=== PATIENT | female | born 1955 | race Caucasian/White ===

== ENCOUNTER 2020-11-09 07:52 | Outpatient (CLI) | payer MEDICARE, SELFPAY ==
--- NOTE | ~2020-11-09 | XR_ITS ---
XR chest 2V DATE: 11/09/2020 08:06 INDICATION: Cough TECHNIQUE: PA and lateral views COMPARISON: 07/04/2019 2 view chest FINDINGS: Status post sternotomy. Status post ventral abdominal wall repair. Cardiomegaly. Mild aortic calcification and unfolding. No hilar or mediastinal enlargement. There is patchy infiltrate or atelectasis of the lingula, mild pleural thickening along the left lowe r lateral chest wall. The right lung appears clear. No pleural effusion or pulmonary vascular congest ion or pneumothorax is evident. IMPRESSION: Status post sternotomy and anterior abdominal wall repair Cardiomegaly Lingular infiltrate and/or atelectasis Reviewed, dictated and finalized at location B. SHAW DRIVER
== END 2020-11-09 07:53 | disposition home or self-care (01) ==
PROVIDERS: PCP Family Medicine; Visit Provider Physician Assistant Medical
DX: R05 Cough (principal); Z98.890 Other specified postprocedural states; I51.7 Cardiomegaly; R91.8 Other nonspecific abnormal finding of lung field
CPT/HCPCS: 71046

== ENCOUNTER 2020-11-30 07:12 | Outpatient (CLI) | payer MEDICARE, SELFPAY ==
--- NOTE | ~2020-11-30 | XR_ITS ---
EXAMINATION: XR chest 2V DATE: 11/30/2020 07:34 INDICATION: Pneumonia, unspecified organism TECHNIQUE: PA and lateral views of the chest are obtained. COMPARISON: 11/09/2020 FINDINGS: There are persistent but decreased airspace opacities of the lingula. There is no pleural e ffusion or pneumothorax. Cardiomegaly is noted. There is moderate thoracic spondylosis. Median sterno mavis wires and mediastinal surgical clips are seen, likely from prior coronary artery bypass grafting . IMPRESSION: 1. Persistent but improved opacities of the lingula, consistent with resolving pneumonia. 2. Cardiomegaly. Reviewed, dictated and finalized at location A. GROWER
== END 2020-11-30 07:13 | disposition home or self-care (01) ==
PROVIDERS: PCP Family Medicine; Visit Provider Physician Assistant Medical
DX: J18.9 Pneumonia, unspecified organism (principal); I51.7 Cardiomegaly
CPT/HCPCS: 71046

== ENCOUNTER 2020-12-06 14:31 | Outpatient (CLI) | payer MEDICARE, SELFPAY ==
--- NOTE | 2020-12-06 14:45 | ECHO_ITS ---
Patient Info Name: Anita Dorado Age: 65 years : 1955 Gender: Female Ht: 61 in Wt: 220 lbs BSA: 2.13 m2 HR: 92 bpm BP: 189 / 111 mmHg Heart Rhythm: Sinus Rhythm Technical Quality: Fair Exam Date: 12/06/2020 3:20 PM Exam Location: [facility]monary Patient Status: Outpatient Admit Date: 12/06/2020 Staff Ordering Physician: Candace Roman PAC Strike Warfare/Missile Systems Officer: Arabella Deng RCS Attending Provider: Candace Roman Referring Physician: Jessie QUINTEROS; Exam Type: CA echo doppler color flow Study Info Indications - cardiomegaly Complete two-dimensional, color flow and Doppler transthoracic echocardiogram is performed. Summary 1. Complete two-dimensional, color flow and Doppler transthoracic echocardiogram is performed. 2. Technically difficult image quality. 3. Normal left ventricular size and contractility. 4. Mildly enlarged left atrium. 5. Trivial mitral regurgitation. Left Ventricle Left ventricular chamber dimension is normal. Left ventricular systolic function is normal, estimated at 50-55%. The left ventricular diastolic function is grade I diastolic dysfunction. Right Ventricle Right ventricular chamber dimension is normal. Left Atria Left atrial chamber dimension is mildly enlarged. Right Atria Right atrial chamber dimension is normal. Aortic Valve The aortic valve is normal. Pulmonic Valve The pulmonic valve is not well visualized. Mitral Valve The mitral valve has normal leaflets. There is trace mitral valve regurgitation. Tricuspid Valve The tricuspid valve leaflets are normal. Pericardium/Pleural The pericardium appears normal. Aorta The aortic root size at the sinus of Valsalva is normal. Left Ventricular Outflow Tract Name Value Normal LVOT 2D LVOT Diameter 2.1 cm LVOT Doppler LVOT Peak Gradient 5 mmHg LVOT Mean Gradient 3 mmHg LVOT VTI 22 cm LVOT VTI/AV VTI Ratio 0.9 LVOT Stroke Volume 76 ml LVOT CO 16.7 l/min LVOT CI 7.9 l/min/m2 Pulmonic Valve Name Value Normal PV Doppler PV Peak Gradient 4 mmHg Mitral Valve Name Value Normal MV Doppler MV Decel Red [place] 314 cm/s2 MV PHT 57 ms MV Area (PHT) 3.8 cm2 4.0-5.0 MV Diastolic Function MV E Peak Velo
== END 2020-12-06 14:32 | disposition home or self-care (01) ==
PROVIDERS: PCP Family Medicine; Visit Provider Physician Assistant Medical
DX: I51.7 Cardiomegaly (principal)
CPT/HCPCS: 93306

== ENCOUNTER → 2021-01-03 12:42 | Outpatient (CLI) | payer MEDICARE, SELFPAY ==
--- NOTE | ~2021-01-03 | MM_ITS ---
EXAMINATION: MM screening [facility] BI w kevin HISTORY: Screening TECHNIQUE: Craniocaudal and mediolateral oblique 3-D tomosynthesis images were obtained and synthetic 2-D images were generated. CAD analysis was submitted and interpreted. COMPARISON: Comparison to multiple prior studies sequentially, with oldest reviewed study dated 04/2015. BREAST PARENCHYMAL COMPOSITION: There are scattered areas of fibroglandular density. FINDINGS: There is no evidence of suspicious mass, calcification, or architectural distortion to sugg est malignancy in either breast. There has been no suspicious interval change. IMPRESSION: 1. No mammographic evidence of malignancy. 2. Recommend routine screening mammography in one year. BI-RADS Category 1: Negative Reviewed, dictated and finalized at location A.
== END ==
PROVIDERS: PCP Family Medicine; Visit Provider Family Medicine
DX: Z12.31 Encounter for screening mammogram for malignant neoplasm of breast (principal)
CPT/HCPCS: 77063; 77067

== ENCOUNTER → 2022-04-03 07:20 | Outpatient (CLI) | payer MEDICARE, SELFPAY ==
--- NOTE | ~2022-04-03 | MM_ITS ---
EXAMINATION: [place] [facility] [place] HISTORY: Screening mammogram TECHNIQUE: Craniocaudal and mediolateral oblique 3-D tomosynthesis images were obtained and synthetic 2-D images were generated. CAD analysis was submitted and interpreted. COMPARISON: 01/03/2021, 08/31/2019, 03/23/2018 BREAST PARENCHYMAL COMPOSITION: There are scattered areas of fibroglandular density. FINDINGS: There is no suspicious mass, calcification, or architectural distortion to suggest malignan cy in either breast. There has been no suspicious interval change. IMPRESSION: 1. No mammographic evidence of malignancy. 2. Recommend routine screening mammography in one year. BI-RADS Category 1: Negative Reviewed, dictated and finalized at location A.
== END ==
PROVIDERS: PCP Family Medicine; Visit Provider Family Medicine
DX: Z12.31 Encounter for screening mammogram for malignant neoplasm of breast (principal)
CPT/HCPCS: 77063; 77067

== ENCOUNTER → 2023-06-11 07:22 | Outpatient (CLI) | payer MEDICARE, SELFPAY ==
--- NOTE | ~2023-06-11 | MM_ITS ---
EXAMINATION: MM screening [facility] w kevin HISTORY: Screening TECHNIQUE: Craniocaudal and mediolateral oblique 3-D tomosynthesis images were obtained and synthetic 2-D images were generated. CAD analysis was submitted and interpreted. COMPARISON: Comparison to multiple prior studies sequentially, with oldest reviewed study dated . BREAST PARENCHYMAL COMPOSITION: Breast composed of scattered areas of fibroglandular density FINDINGS: There is no evidence of suspicious mass, calcification, or architectural distortion to sugg est malignancy in either breast. There has been no suspicious interval change. IMPRESSION: 1. No mammographic evidence of malignancy. 2. Recommend routine screening mammography in one year. BI-RADS Category 1: Negative Reviewed, dictated and finalized at location A.
== END ==
PROVIDERS: PCP Family Medicine; Visit Provider Family Medicine
DX: Z12.31 Encounter for screening mammogram for malignant neoplasm of breast (principal)
CPT/HCPCS: 77063; 77067

== ENCOUNTER 2024-07-22 12:12 | Outpatient (CLI) | payer MEDICARE, SELFPAY ==
--- NOTE | ~2024-07-22 | MM_ITS ---
EXAMINATION: MM screening [facility] BI w kevin HISTORY: Screening mammogram TECHNIQUE: Craniocaudal and mediolateral oblique 3-D tomosynthesis images were obtained and synthetic 2-D images were generated. CAD analysis was submitted and interpreted. COMPARISON: 06/11/2023, 04/03/2022, 01/03/2021 BREAST PARENCHYMAL COMPOSITION:Not Dense. The breasts are almost entirely fatty FINDINGS: No suspicious mass, calcification, or architectural distortion are identified in either brandie ast to suggest malignancy. There has been no suspicious interval change. IMPRESSION: No mammographic evidence of malignancy. Recommend routine screening mammography in one year. BI-RADS Category 1: Negative Reviewed, dictated and finalized at location .
== END 2024-07-22 12:13 | disposition home or self-care (01) ==
LOC: MICIMG 12:13
PROVIDERS: PCP Family Medicine; Visit Provider Family Medicine
DX: Z12.31 Encounter for screening mammogram for malignant neoplasm of breast (principal)
CPT/HCPCS: 77063; 77067

== ENCOUNTER 2024-09-01 09:15 | Outpatient (CLI) | payer MEDICARE, SELFPAY ==
--- NOTE | ~2024-09-01 | XR_ITS ---
Right Shoulder Technique: AP and scapular Y views were obtained. Clinical History: Pain Findings: No fracture or dislocation is seen. Osseous alignment is anatomic. The glenohumeral and acr omioclavicular joints demonstrate moderate degenerative change. Soft tissues are unremarkable. Impression: Moderate degenerative changes, as above. Reviewed, dictated and finalized at [facility]. BLAST WORKER Impression: Moderate degenerative changes, as above.
== END 2024-09-01 09:16 | disposition home or self-care (01) ==
LOC: MICIMG 09:16
PROVIDERS: PCP Physician Assistant Medical; Visit Provider Physician Assistant Medical
DX: M19.011 Primary osteoarthritis, right shoulder (principal)
CPT/HCPCS: 73030

== ENCOUNTER 2024-12-13 08:48 | Outpatient (CLI) | payer MEDICARE, SELFPAY ==
--- NOTE | ~2024-12-13 | MR_ITS ---
EXAMINATION: MR shoulder RT wo con DATE: 12/13/2024 09:29 INDICATION: Right shoulder pain TECHNIQUE: Magnetic resonance imaging (MRI) of the right shoulder was performed without intravenous c ontrast. Sequences included axial PD-weighted FS FSE, coronal oblique PD-weighted FS FSE, coronal obl ique T2-weighted FS FSE, sagittal PD-weighted FS FSE, and sagittal T1-weighted SE. COMPARISON: None. FINDINGS: Evaluation moderately limited by some degree of motion artifact on all sequences. Coracoacromial arch: The acromion undersurface is flat in morphology (type I). The coracoacromial ligament is normal. Mode rate acromioclavicular osteoarthritis. Rotator cuff: Mild supraspinatus and infraspinatus tendinopathy with small mild partial-thickness tear articular si ded tear extending 5 mm AP and involving one third of the tendon thickness on the middle facet footpl ate of the tendon. There is up to 7 mm medial retraction of the bursal side of the tendon. The infras pinatus tendon is normal. Mild subscapularis tendinopathy without discrete tear. No asymmetric rotato r cuff muscle atrophy. Biceps tendon, glenoid labrum and glenohumeral cartilage: Mild tendinopathy without tear of the intra-articular portion of the long head biceps tendon. Severe when humeral osteoarthritis with extensive full or near full-thickness cartilage loss along the gleno id and the superior to superomedial aspect of the humeral head. There is associated subarticular cyst like changes along the anteroinferior glenoid. Suggestion of some early remodeling of the articular c ortex with increase in the radius of curvature the articular cortex at the anterosuperior medial aspe ct of the humeral head. Diffuse degenerative tearing of the glenoid labrum. Fluid: Moderate-sized glenohumeral joint effusion. Synovitis and a low signal intensity likely loose osteoch ondral body at the axillary recess of the joint space. There is significant fluid distending both the long head biceps tendon sheath as well as the deep subscapular recess. There is also a ganglion cyst extending cephalad along the superolateral margin of the coracoid process. No abnormal increased fl uid in the subacromial/subdeltoid bursa to suggest mild bursitis. Bones: Alignment is normal. No fracture or pathologic marrow replacing process. IMPRESSION: 1. Severe glenohumeral osteoarthritis with early remodeling of the humeral head, diffuse degenerative tearing of the glenoid labrum and moderate size joint effusion. 2. Mild rotator cuff tendinopathy with small mild articular sided tear at the footplate of the infras pinatus tendon. 3. Mild tendinopathy without tear of the long head biceps tendon. 4. Moderate acromioclavicular osteoarthritis. 5. Evaluation moderately limited by some degree of motion artifact on all sequences. Reviewed, dictated and finalized at location B. IMPRESSION: 1. Severe glenohumeral osteoarthritis with early remodeling of the humeral head , diffuse degenerative tearing of the glenoid labrum and moderate size joint ef fusion. 2. Mild rotator cuff tendinopathy with small mild articular sided tear at the f ootplate of the infraspinatus tendon. 3. Mild tendinopathy without tear of the long head biceps tendon. 4. Moderate acromioclavicular osteoarthritis. 5. Evaluation moderately limited by some degree of motion artifact on all seque nces.
== END 2024-12-13 08:49 | disposition home or self-care (01) ==
LOC: GOSHIMG 08:48
PROVIDERS: PCP Physician Assistant Medical; Visit Provider Physician Assistant Medical
DX: M19.011 Primary osteoarthritis, right shoulder (principal)
CPT/HCPCS: 73221

== ENCOUNTER 2025-02-27 10:52 | Outpatient (CLI) | payer MEDICARE, SELFPAY ==
--- NOTE | 2025-02-27 11:12 | ECG_ITS ---
Test Date: 2025-02-27 11:59:52 Measurements Intervals Smiley Rate: 57 P: 14 WI: 153 QRS: 0 QRSD: 91 T: 45 QT: 429 QTc: 420 Interpretive Statements SINUS BRADYCARDIA LOW QRS VOLTAGE IN PRECORDIAL LEADS INCOMPLETE RIGHT BUNDLE BRANCH BLOCK DELAYED PRECORDIAL R/S TRANSITION CONSIDER INFERIOR INFARCT, AGE INDETERMINATE BORDERLINE ST ABNORMALITY- HIGH LATERAL LEADS BASELINE ARTIFACT- I, II, III, AVR, AVL, AVF ABNORMAL ECG No previous ECG available for comparison Electronically Signed On 02-27-2025 12:08:32 CDT by Gigi Blevins D.O.
[2025-02-27 11:34] LABS: Hematocrit 42.4 % (37.0-47.0); Hemoglobin 13.3 g/dL (12.0-15.0)
[2025-02-27 11:49] LABS: Albumin Level 4.3 g/dL (3.5-5.1); Estimated Glomerular Filt Rate > 60; Glucose 108 mg/dL (65-110)
--- OUTSIDE RECORDS SUMMARY | 2025-02-27 12:12 | XMS_ITS | Clinical Summary ---
Author Organization [facility] Virtual Care Address [address] [place] [phone] Phone Care Team Providers Care Train System Operator Name Role Phone Raf Cano MD Primary Care Provider + [phone] Allergies No known active allergies Medications fish oil-fat acid comb.8-hb137 (OMEGA 3-6-9) 1,200 mg (400 [id number]) capsule 0 2 Active aspirin (ASPIRIN LOW DOSE) 81 mg tablet take 1 tablet (81MG) by oral route every day 0 2 Active albuterol HFA (VENTOLIN HFA) 90 mcg/actuation inhaler inhale 2 puff by inhalation route every 4 - 6 hours as needed 0 Inhaler 0 4 Active montelukast (SINGULAIR) 10 mg tablet take 1 tablet by oral route every day in the evening 0 0 6 Active losartan (COZAAR) 100 mg tablet Take 1 tablet (100 mg total) by mouth daily 2 Active fluticasone-ume clidin-vilanter (Trelegy Ellipta) 100-62.5-25 mcg inhaler Inhale 1 puff daily Active atorvastatin (LIPITOR) 40 mg tabletIndicatio ns:Coronary artery disease involving cataw[place] coronary artery of cata[place]ba heart without angina pectoris Take 1 tablet by mouth once daily 90 tablet 3 4 Active Active Problems Problem Noted Date Diagnosed Date Coronary artery disease invo lving catawba coronary artery of cata[place] heart without angina pectoris 06/11/2017 S/P CABG (coronary artery bypass graft) 06/11/20 17 Morbid obesity with BMI of 40.0-44.9, adult 05/23 Medical History Medical History Date Comments Hypertension Hypertension Coronary artery disease Social History Tobacco Use Types Packs/Day Years Used Date Smoking Tobacco: Never Smokeless Tobacco: Never Tobacco Cessation:Counseling Given: Not Answered Alcohol Use Standard Drinks/Week Comments Yes 0 (1 standard drink = 0.6 oz pur e alcohol) Comments Unknown Sex and Gender Information Value Date Recorded Sex Assigned at Not on file 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 Gender Identity Not on file Sexual Orientation Not on file Obstetrics History Last Filed Vital Signs Vital Sign Reading Time Taken Comments Blood Pressure 130/80 06/21/2024 8:58 AM CDT Pulse 77 06/21/2024 8:58 AM CDT Temperature - - Respiratory Rate 16 06/11/2017 8:59 AM CDT Oxygen Saturation 98% 06/21/2024 8:58 AM CDT Inhaled Oxygen Concentration - - Weight 95.4 kg (210 lb 6.4 oz) 06/21/2024 8:58 A M CDT Height 154.9 cm (5' 1) 06/21/2024 8:58 AM CDT Body Mass Index 39.75 06/21/2024 8:58 AM CDT Plan of Treatment Health Maintenance Due Date Last Done Comments Breast Cancer Screening-Mammogram 1955 Colon Cancer Screening-Colonoscopy 1955 Depression Screening 1955 Fall Risk Assessment 1955 Hepatitis C Screening 1955 Osteoporosis Screening-Bone Density Scan 1955 Hepatitis B Screening 1973 Pneumococcal vaccine 65+ (2 of 2 - PCV) 12/11/2015 12/10/2014 Well Visit 65+ 2020 Influenza Vaccine (Season Ended) 2025 07/17/2019, 07/11/2018, 07/02/2017, Additional history exists DTaP/Tdap/Td Vaccine (3 - Td or Tdap) 07/17/2029 07/17/2019, 06/01/2015 Zoster Vaccine Completed 09/25/2019, 07/27/2019 Insurance [facility] MDCR HMO REF [facility] MEDICARE GOLD Care Teams Train System Operator Relationship Specialty Start Date End Date Raf Cano MD PCP - General 12/19/16
--- OUTSIDE RECORDS SUMMARY | 2025-02-27 12:12 | XMS_ITS | Referral Summary ---
Author Organization [facility] Virtual Care Address [address] [place] [phone] Phone Care Team Providers Care Fiber Optic Technician Name Role Phone Raf Cano MD Primary Care Provider + [phone] Allergies No known active allergies Medications fish oil-fat acid comb.8-hb137 (OMEGA 3-6-9) 1,200 mg (400 [id number]) capsule 0 2 Active aspirin (ASPIRIN LOW [...] 40 mg tabletIndicatio ns:Coronary artery disease involving tlingit & haida coronary artery of tlingit & haida heart without angina pectoris Take 1 tablet by mouth once daily 90 tablet 3 4 Active Active Problems Problem Noted Date Diagnosed Date Coronary artery disease invo lving tlingit & haida coronary artery of tlingit & haida heart without angina pectoris 06/11/2017 S/P CABG (coronary artery bypass graft) 06/11/20 17 Morbid obesity with BMI of 40.0-44.9, adult 05/23 Social History Tobacco Use Types Packs/Day Years Used Date Smoking Tobacco: Never Smokeless Tobacco: Never Tobacco Cessation:Counseling Given: Not Answered Alcohol Use Standard Drinks/Week Comments Yes 0 (1 standard drink = 0.6 oz pur e alcohol) Comments Unknown Sex and Gender Information Value Date Recorded Sex Assigned at Not on file 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
[2025-02-27 12:18] LABS: Hemoglobin A1C 6.1 % (<5.7)
== END 2025-02-27 10:53 | disposition home or self-care (01) ==
PROVIDERS: PCP Physician Assistant Medical; Visit Provider Orthopaedic Surgery
DX: I10 Essential (primary) hypertension (principal); E78.2 Mixed hyperlipidemia; E11.9 Type 2 diabetes mellitus without complications; R79.89 Other specified abnormal findings of blood chemistry; D72.9 Disorder of white blood cells, unspecified
CPT/HCPCS: 36415; 82040; 82565; 82947; 83036; 85014; 85018; 93005

== ENCOUNTER 2025-03-09 09:34 | Outpatient (CLI) | payer MEDICARE, SELFPAY ==
--- NOTE | ~2025-03-09 | CT_ITS ---
EXAMINATION: CT_STKSHORTWO_CT DATE: 03/09/2025 10:03 INDICATION: Right shoulder osteoarthritis for preoperative planning. TECHNIQUE: High resolution computed tomography (CT) of the right shoulder was performed without intra venous contrast. Additional sagittal and coronal reconstructions were performed. Automated exposure c ontrol and iterative reconstruction technique were employed. The dose-length product was 415.54 mGy-c m. COMPARISON: Right shoulder radiographs dated 03/09/2025 FINDINGS: Bone alignment is normal. No fracture. Severe osteoarthritis with subarticular cystlike changes at felicia th the right glenohumeral and acromioclavicular joints. Moderate size marginal osteophytes about the humeral head and glenoid. Small right glenohumeral joint effusion with couple loose osteochondral bod ies at the axillary recess and additional moderate amount of fluid extending into the deep subscapula r recess. No asymmetric muscular atrophy of the right rotator cuff or remaining shoulder girdle. Mild discoid atelectasis at the posterior sulcus of the right lower lobe. No pathologically enlarged righ t axillary or hilar lymphadenopathy. IMPRESSION: 1. Severe right glenohumeral and acromioclavicular osteoarthritis. Reviewed, dictated and finalized at location B.
--- OUTSIDE RECORDS SUMMARY | 2025-03-09 10:02 | XMS_ITS | Referral Summary ---
Author Organization [facility] Virtual Care Address [address] [place] [phone] Phone Care Team Providers Care Patient'S Librarian Name Role Phone Raf Cano MD Primary Care Provider + [phone] Allergies No known active allergies Medications fish oil-fat acid comb.8-hb137 (OMEGA 3-6-9) 1,200 mg (400 [id number]) capsule 0 2 Active aspirin (ASPIRIN LOW [...] 40 mg tabletIndicatio ns:Coronary artery disease involving ely shoshone coronary artery of ely shoshone heart without angina pectoris Take 1 tablet by mouth once daily 90 tablet 3 4 Active Active Problems Problem Noted Date Diagnosed Date Coronary artery disease invo lving ely shoshone coronary artery of ely shoshone heart without angina pectoris 06/11/2017 S/P CABG [...] on file 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
--- OUTSIDE RECORDS SUMMARY | 2025-03-09 10:02 | XMS_ITS | Clinical Summary ---
Author Organization [facility] Virtual Care Address [address] [place] [phone] Phone Care Team Providers Care Medical Donation Professional Name Role Phone Raf Cano MD Primary Care Provider + [phone] Allergies No known active allergies Medications fish oil-fat acid comb.8-hb137 (OMEGA 3-6-9) 1,200 mg (400 [id number]) capsule 0 2 Active aspirin (ASPIRIN LOW [...] 40 mg tabletIndicatio ns:Coronary artery disease involving inupiat coronary artery of inupiat heart without angina pectoris Take 1 tablet by mouth once daily 90 tablet 3 4 Active Active Problems Problem Noted Date Diagnosed Date Coronary artery disease invo lving inupiat coronary artery of inupiat heart without angina pectoris 06/11/2017 S/P CABG [...] on file 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
== END 2025-03-09 09:35 | disposition home or self-care (01) ==
PROVIDERS: PCP Physician Assistant Medical; Visit Provider Orthopaedic Surgery
DX: M19.011 Primary osteoarthritis, right shoulder (principal)
CPT/HCPCS: 73200

== ENCOUNTER 2025-06-09 11:50 | Outpatient (CLI) | payer MEDICARE, SELFPAY ==
--- OUTSIDE RECORDS SUMMARY | 2025-06-09 11:59 | XMS_ITS | Encounter Summary ---
Author Organization [facility] Healthcare Address [address] [place] [address] Care Team Providers Care Redrawer Name Role Phone Raf Cano MD Primary Care Provider [phone] Encounter Details Date Type Department Care Team (Late st Contact Info) Description 07/17/2017 Orders Only [facility] Health Information Management [address] [place] [phone] Scanning, Provider Social History Tobacco Use Types Packs/Day Years Used Date Smoking Tobacco: Never Smokeless Tobacco: Never Alcohol Use Standard Drinks/Week Comments Yes 0 (1 standard drink = 0.6 oz pur e alcohol) Comments Unknown Sex and Gender Information Value Date Recorded Sex Assigned at Not on file 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 Gender Identity Not on file Sexual Orientation Not on file documented as of this encounter Plan of Treatment Not on file documented as of this encounter Procedures Procedure Name Priority Date/Time Associated Diagnosis Comments SCAN - RADIOLOGY/IMAGING 07/17/2017 documented in this encounter Results * SCAN - RADIOLOGY/IMAGING (07/17/2017) Anatomical Region Laterality Modality Other us Provider Scanning Final Result documented in this encounter Visit Diagnoses Not on filedocumented in this encounter Care Teams Redrawer Relationship Specialty Start Date End Date Raf Cano MD PCP - General 12/19/16 documented as of this encounter
--- OUTSIDE RECORDS SUMMARY | 2025-06-09 11:59 | XMS_ITS | Clinical Summary ---
Author Organization [facility] Virtual Care Address [address] [place] [phone] Phone Care Team Providers Care Photographic Process Worker Name Role Phone Raf Cano MD Primary Care Provider + [phone] Allergies No known active allergies Medications fish oil-fat acid comb.8-hb137 (OMEGA 3-6-9) 1,200 mg (400 [id number]) capsule 0 2 Active aspirin (ASPIRIN LOW [...] 40 mg tabletIndicatio ns: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 Take 1 tablet by mouth once daily 90 tablet 3 4 Active Active Problems Problem Noted Date Diagnosed Date Coronary artery disease invo lving iroquois coronary artery of iroquois heart without angina pectoris 06/11/2017 S/P CABG [...] on file 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
--- OUTSIDE RECORDS SUMMARY | 2025-06-09 11:59 | XMS_ITS | Encounter Summary ---
Author Organization [facility] Healthcare Address [address] [place] [address] Care Team Providers Care Legislative Aide Name Role Phone Raf Cano MD Primary Care Provider Encounter Details Date Type Department Care Team (Late st Contact Info) Description 10/20/2017 Orders Only [facility] [place] Health Information Management [address] [place] [id number] Scanning, Provider Social History Tobacco Use Types Packs/Day Years Used Date Smoking Tobacco: Never Smokeless Tobacco: Never Alcohol Use Standard Drinks/Week Comments Yes 0 (1 standard drink = 0.6 oz pur e alcohol) Comments Unknown Sex and Gender Information Value Date Recorded Sex Assigned at Not on file 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 Gender Identity Not on file Sexual Orientation Not on file documented as of this encounter Plan of Treatment Not on file documented as of this encounter Procedures Procedure Name Priority Date/Time Associated Diagnosis Comments SCAN - RADIOLOGY/IMAGING 10/20/2017 documented in this encounter Results * SCAN - RADIOLOGY/IMAGING (10/20/2017) Anatomical Region Laterality Modality Other us Provider Scanning Final Result documented in this encounter Visit Diagnoses Not on filedocumented in this encounter Care Teams Legislative Aide Relationship Specialty Start Date End Date Raf Cano MD PCP - General 12/19/16 documented as of this encounter
--- OUTSIDE RECORDS SUMMARY | 2025-06-09 11:59 | XMS_ITS | Clinical Summary ---
Author Organization [facility] Address [facility] [place] [address] Care Team Providers Care Circus Artist Name Role Phone Raf Cano MD Primary Care Provider [phone] Allergies Active Allergy Reactions Criticality Noted Date Comments Cefuroxime Itching 01/28/2023 Medications losartan (COZAAR) 100 MG tablet Take 1 tablet (100 mg total) by mouth daily. Active atorvastatin (LIPITOR) 20 MG tablet Take 1 tablet (20 mg total) by mouth nightly at bedtime. Active montelukast (SINGULAIR) 10 MG tablet Take 1 tablet (10 mg total) by mouth nightly at bedtime. Active Fluticasone-Umec lidin-Vilant (TRELEGY ELLIPTA) 100-62.5-25 MCG/ACT AEROSOL POWDER, BREATH ACTIVATED Inhale 100 mg into the lungs. Active aspirin EC (ECOTRIN) 81 MG tablet Take 1 tablet (81 mg total) by mouth daily. Active vitamin C (ASCORBIC ACID) 500 MG tablet Take 1 tablet (500 mg total) by mouth daily. Active fish oil (OMEGA-3 FATTY ACID) 1000 MG Cap capsule Take 2,400 mg by mouth daily. 2 tabs daily Active Nutritional Supplements (JUICE PLUS FIBRE) Liquid Take 6 capsules by mouth daily. Active albuterol sulfate HFA 108 (90 Base) MCG/ACT inhaler INHALE 1 PUFF BY MOUTH EVERY 4 HOURS NEEDED FOR SHORTNESS OF BREATH OR WHEEZING 3 Active ketoconazole (NIZORAL) 2 % shampoo SHAMPOO TWICE WEEKLY (USE ON FACE AND SCALP), LEAVE ON FOR 5 MINUTES BEFORE RINISING 08/17/202 2 Active Active Problems No known active problems Family History Medical History Relation Comments Cancer Father Colon Cancer Maternal Grandmother None Mother Relation Status Comments Father Maternal Grandmother Mother Social History Tobacco Use Types Packs/Day Years Used Date Smoking Tobacco: Never Smokeless Tobacco: Never Alcohol Use Standard Drinks/Week Comments Yes 0 (1 standard drink = 0.6 oz pur e alcohol) holidays Comments Unknown Sex and Gender Information Value Date Recorded Sex Assigned at Not on file Legal Sex Female 10:39 AM CDT Gender Identity Not on file Sexual Orientation Not on file Last Filed Vital Signs Vital Sign Reading Time Taken Comments Blood Pressure 121/86 02/04/2023 11:02 AM CDT Pulse 68 02/04/2023 11:02 AM CDT Temperature 36.6 C (97.8 F) 02/04/2023 10:50 AM CDT Respiratory Rate 15 02/04/2023 11:02 AM CDT Oxygen Saturation 97% 02/04/2023 11:02 AM CDT Inhaled Oxygen Concentration - - Weight 113.4 kg (250 lb) 01/28/2023 2:11 PM CDT Height 154.9 cm (5' 1) 01/28/2023 2:11 PM CDT Body Mass Index 47.24 01/28/2023 2:11 PM CDT Plan of Treatment Health Maintenance Due Date Last Done Comments Hepatitis C 1973 Mammogram Screening 1995 RSV Immunization or 60+ Years (1 - Risk 60-74 years 1-dose series) 2015 Annual Medicare Wellness Visit 2020 Dexa Scan (General) 2020 Pneumococcal Vaccine: 50+ Years (2 of 2 - PCV) 06/04/2022 06/04/2021, 12/10/2014 COVID-19 Vaccine (3 - 2024-2 6 season) 2025 02/10/2021, 01/20/2021 DTaP, Tdap and Td Vaccines ( 3 - Td or Tdap) 07/17/2029 07/17/2019, 06/01/2015 Colorectal Cancer Screening Colonoscopy (10 Years) 02/04/2033 02/04/2023, 02/04/2023 Zoster Vaccines Completed 09/25/2019, 07/27/2019 Meningococcal B Vaccine Aged Out No l onger eligible based on patient's age to complete this topic Meningococcal Vaccine Aged Out No rebecca kya eligible based on patient's age to complete this topic RSV Immunizations Under 20 Months Aged Out No longer eligible b ased on patient's age to complete this topic Procedures Procedure Name Priority Date/Time Associated Diagnosis Comments COLONOSCOPY Routine 02/04/2023 9:28 AM CDT from Last 3 Months or Most Recently Relevant to Health [place] [address] Care Teams Circus Artist Relationship Specialty Start Date End Date Raf Cano MD [address] [address] PCP - General FAMILY PRACTICE 02/04/23
[2025-06-09 13:31] LABS: Hematocrit 41.4 % (37.0-47.0); Hemoglobin 12.8 g/dL (12.0-15.0); Immature Granulocyte Percent A 0.2 % (0-0.5); Lymphocytes Absolute Auto 2.28 K/mm3 (0.9-3.2); Mean Corpuscular HGB Conc 30.9 g/dl (32-36); Mean Corpuscular Hemoglobin 28.5 pg (26-34); Mean Corpuscular Volume 92.2 fl (80-100); Nucleated Red Blood Cells Absolute Auto 0.000 K/mm3 (0.0-0.012); Nucleated Red Blood Cells Perc 0.0 % (0.0-0.2); Platelet Count Result 293 k/mm3 (150-375); Red Blood Count 4.49 M/mm3 (4.2-5.4); White Blood Count 8.2 K/mm3 (4.5-10.0)
[2025-06-09 14:39] LABS: MRSA (PCR) NOT DETECTED (NOT DETECTE)
== END 2025-06-09 11:51 | disposition home or self-care (01) ==
LOC: ANHSURGERY 11:57
PROVIDERS: PCP Family Medicine; Visit Provider Orthopaedic Surgery
DX: M75.111 Incomplete rotator cuff tear or rupture of right shoulder, not specified as traumatic (principal)
CPT/HCPCS: 36415; 85025; 87641

== ENCOUNTER 2025-07-06 00:40 | Day surgery (SDC) | payer MEDICARE, SELFPAY ==
[2025-06-09 12:01] VITALS: BMI 35.2
--- NOTE | 2025-06-09 12:01 | PC.NURSE ---
[facility] has started construction of its new state of the art ER which will open Spring 2026. With this, we anticipate parking may be a challenge for some our surgical patients and families. Parking spaces are limited but are available for all Surgical, obstetrics, and ER patients sharing this lot. If you arrive and find you are having a hard time finding a parking space, please note that we understand the challenges, please drive around the hospital and park near Hospital Entrance 1. When you enter this entrance, you can ask a volunteer to direct or take you back to the surgical waiting area to check in. We appreciate everyone?s understanding of these expected challenges while we build for your future. Report to the Outpatient Waiting Room, entrance under the green pavilion located off [address], at time _6 am on date __07/06/25 . Planned Procedure Time: __7:30 am .? Time changes happen often and if your time is changed the preop area will call you the afternoon before. - You and your visitor will be asked to self-screen and do not enter if you have any COVID symptoms. Please call surgeon if you need to reschedule. - A mask is optional within the hospital at this time. Patients may have clear liquids (water, carbonated beverages, clear teas, apple juice) until 3 hours prior to surgery ( 4:30 AM)with a maximum of 20 ounces. - No food from midnight until time of surgery and no smoking, or chewing tobacco (or any form of nicotine). No chewing gum, candy or mints. - Take only the following medications with a SIP of water on the morning of surgery: __INHALER DO NOT STOP ANY OF YOUR OTHER PRESCRIPTION MEDICATIONS PRIOR TO SURGERY EXCEPT THE FOLLOWING Hold all vitamins and supplements for 3 days per anesthesiologist.LAST DOSE 07/02/25 Medications to discontinue per physician __HOLD ASPIRIN AND MELOXICAM 7 DAYS PRE OP PER DR MORALES Date to take last dose__06/28/25 Please no make-up, nail burkinan, hairspray, perfume, deodorant, or body powder the day of surgery.? No jewelry (including any body piercings) or valuables the day of surgery, leave them at home.? Please take a shower or bath the night before, or the morning of, surgery with an antibacterial soap.? Wear comfortable, loose fitting clothing.? Children are encouraged to wear pajamas. - Jewelry must be removed prior to entering the operating room.? Rings and piercings that are not removed may be cut off. - The hospital will not accept responsibility for valuables.? - Please leave all valuables, including medications, at home the day of surgery. If you are going home after surgery, a licensed horse and wagon driver must drive you home.? - NO public transportation without another adult if you receive anesthesia. - We recommend that an adult stay with you for 24 hours following discharge. - We also recommend that you do not drive, make important decision, drink alcoholic beverages, or take any drugs that were not prescribed by your health care provider for at least 24 hours after your discharge time. For Pediatric surgeries, we recommend two adults accompany the child home. Follow any additional instructions given to you from your surgeon. VERBAL AND WRITTEN instructions given to PATIENT AND SPOUSE and asked if any additional questions and then verbalized understanding. Patient advised to call surgeon office or pre surgery nurse liaison [phone] if any additional questions.
[2025-06-09 12:57] VITALS: BP 137/78; PULSE 61; RESP 18; TEMP 36.9; O2SAT 97
[2025-07-06] VITALS (14 sets, daily range): BP systolic 131–172; BP diastolic 65–92; PULSE 55–76; RESP 12–18; TEMP 35.7–36.8; O2SAT 92–100
--- NOTE | ~2025-07-06 | XR_ITS ---
EXAMINATION: XR shoulder RT min 2V, 07/06/2025 9:55 CDT HISTORY: POST-OP RIGHT REVERSE TOTAL SHOULDER COMPARISON: No comparisons available. Findings: No acute fracture or malalignment. Arthroplasty intact Soft tissues unremarkable. Impression: No acute fracture or malalignment. Reviewed, dictated and finalized at location P. Impression: No acute fracture or malalignment.
--- OUTSIDE RECORDS SUMMARY | 2025-07-06 00:43 | XMS_ITS | Clinical Summary ---
Author Organization [facility] Address [facility] [place] [address] Care Team Providers Care Identity Management Developer Name Role Phone Raf Cano MD Primary Care Provider [phone] Allergies Active Allergy Reactions Criticality Noted Date [...] LEAVE ON FOR 5 MINUTES BEFORE RINISING 2 Active Active Problems No known active [...] 06/04/2022 06/04/2021, 12/10/2014 COVID-19 Vaccine (3 - season) 2025 02/10/2021, 01/20/2021 Influenza Adult (#1) 2025 07/17/2019, 07/11/2018, 07/02/2017, Additional history exists DTaP, Tdap and Td Vaccines (3 - Td or Tdap) 07/17/2029 07/17/2019, 06/01/2015 Colorectal Cancer Screening Colonoscopy (10 Years) 02/04/2033 02/04/2023, 02/04/2023 Zoster Vaccines Completed 09/25/2019, 07/27/2019 Hepatitis A Vaccines Aged Out No long er eligible based on patient's age to complete this topic Meningococcal B Vaccine Aged Out No l onger eligible based on patient's age to complete this topic Meningococcal Vaccine Aged Out No rebecca kya eligible based on patient's age to complete this topic RSV Immunizations Under 20 Months Aged Out No longer eligible based on patient's age to complete this topic Procedures Procedure Name Priority Date/Time Associated Diagnosis Comments COLONOSCOPY Routine 02/04/2023 9:28 AM CDT from Last 3 Months or Most Recently Relevant to Health Maintenance Insurance MEDICARE Care Teams Identity Management Developer Relationship Specialty Start Date End Date Raf Cano MD [address] [address] PCP - General FAMILY PRACTICE 02/04/23
--- OUTSIDE RECORDS SUMMARY | 2025-07-06 00:43 | XMS_ITS | Encounter Summary ---
Author Organization [facility] Healthcare Address [address] [place] [address] Care Team Providers Care Plate Take Out Worker Name Role Phone Raf Cano MD Primary Care Provider Encounter Details Date Type Department Care Team (Late st Contact Info) Description 09/07/2017 Orders Only [facility] Health Information Management [address] [place] [id number] Scanning, Provider Social History Tobacco Use Types Packs/Day Years Used Date Smoking Tobacco: Never Smokeless Tobacco: Never Alcohol Use Standard Drinks/Week Comments Yes 0 (1 standard drink = 0.6 oz pur e alcohol) Comments Unknown Sex and Gender Information Value Date Recorded Sex Assigned at Not on file 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 Gender Identity Not on file Sexual Orientation Not on file documented as of this encounter Plan of Treatment Not on file documented as of this encounter Procedures Procedure Name Priority Date/Time Associated Diagnosis Comments SCAN - RADIOLOGY/IMAGING 09/07/2017 documented in this encounter Results * SCAN - RADIOLOGY/IMAGING (09/07/2017) Anatomical Region Laterality Modality Other us Provider Scanning Final Result documented in this encounter Visit Diagnoses Not on filedocumented in this encounter Care Teams Plate Take Out Worker Relationship Specialty Start Date End Date Raf Cano MD PCP - General 12/19/16 documented as of this encounter
--- OUTSIDE RECORDS SUMMARY | 2025-07-06 00:43 | XMS_ITS | Encounter Summary ---
Author Organization [facility] Healthcare Address [address] [place] [address] Care Team Providers Care Research Chemist Name Role Phone Raf Cano MD Primary Care Provider Encounter Details Date Type Department Care Team (Late st Contact Info) Description 07/17/2017 Orders Only [facility] Health Information Management [address] [place] [id number] Scanning, Provider Social History Tobacco Use Types Packs/Day Years Used Date Smoking Tobacco: Never Smokeless Tobacco: Never Alcohol Use Standard Drinks/Week Comments Yes 0 (1 standard drink = 0.6 oz pur e alcohol) Comments Unknown Sex and Gender Information Value Date Recorded Sex Assigned at Not on file 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
--- OUTSIDE RECORDS SUMMARY | 2025-07-06 00:43 | XMS_ITS | Clinical Summary ---
Author Organization [facility] Virtual Care Address [address] [place] [phone] Phone Care Team Providers Care Manager Project Name Role Phone Raf Cano MD Primary Care Provider [phone] Allergies No known active allergies Medications fish oil-fat acid [id number] (OMEGA 3-6-9) 1,200 mg (400 [id number] ) capsule 0 05/06/20 12 Active aspirin (ASPIRIN LOW DOSE) 81 mg tablet take 1 tablet (81MG) by oral route every day 0 05/06/20 12 Active albuterol HFA (VENTOLIN HFA) 90 mcg/actuation inhaler inhale 2 puff by inhalation route every 4 - 6 hours as needed 0 Inhaler 0 03/16/20 14 Active montelukast (SINGULAIR) 10 mg tablet take 1 tablet by oral route every day in the evening 0 0 02/26/20 16 Active losartan (COZAAR) 100 mg tablet Take 1 tablet (100 mg total) by mouth daily 06/11/20 22 Active fluticasone-um eclidin-vilant er (Trelegy Ellipta) 100-62.5-25 mcg inhaler Inhale 1 puff daily Active atorvastatin (LIPITOR) 40 mg tabletIndicati ons: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 Take 1 tablet by mouth once daily 90 tablet 3 07/05/20 25 Active atorvastatin (LIPITOR) 40 mg tabletIndicati ons: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 GOLD Care Teams Manager Project Relationship Specialty Start Date End Date Raf Cano MD [facility] - General 12/19/16
--- OUTSIDE RECORDS SUMMARY | 2025-07-06 00:43 | XMS_ITS | Encounter Summary ---
Author Organization [facility] Healthcare Address [address] [place] [address] Care Team Providers Care Lot Boss Name Role Phone Raf Cano MD Primary Care Provider Encounter Details Date Type Department Care Team (Late st Contact Info) Description 10/20/2017 Orders Only [facility] [place] Health Information Management [address] [place] [id number] Scanning, Provider Social History Tobacco Use Types Packs/Day Years Used Date Smoking Tobacco: Never Smokeless Tobacco: Never Alcohol Use Standard Drinks/Week Comments Yes 0 (1 standard drink = 0.6 oz pur e alcohol) Comments Unknown Sex and Gender Information Value Date Recorded Sex Assigned at Not on file 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
[2025-07-06] MEDS: LACTATED RINGERS 1,000 ML 30 ML IV CONT ×2 (06:30→09:42)
[2025-07-06] MEDS: TRANEXAMIC ACID 1,000MG/ISO100 1,000 MG/100 ML BAG 200 MG IVPB (07:00)
--- NOTE | 2025-07-06 07:05 | WPDANESEPPF ---
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 Patient Data Age: 70 Gender: F Height: 1.55 m Weight: 84.5 kg Last Vital Signs Temp 36.9 C 06/09/25 12:57 Pulse 61 06/09/25 12:57 Resp 18 06/09/25 12:57 BP 137/78 06/09/25 12:57 Pulse Ox 97 06/09/25 12:57 O2 Del Method Room Air 06/09/25 12:57 Allergies Allergy/AdvReac Type Severity Reaction Status Date / Time watermelon Allergy Intermediate Anaphylaxis Verified 06/13/25 07:59 cefuroxime Allergy Unknown Itching Verified 06/13/25 07:59 Home Medications ?Medication ?Instructions ?Recorded ?Confirmed ?Type aspirin 81 mg tablet,delayed 81 mg PO DAILY 08/10/19 06/13/25 History release fluticasone propionate 50 1 spray intranasal DAILY 08/10/19 06/13/25 History mcg/actuation nasal spray,suspension (Flonase Allergy Relief) omega-3 fatty acids 1,000 mg 1,000 mg PO BID 08/10/19 06/13/25 History capsule (Fish Oil Concentrate) sodium chloride 0.65 % nasal spray 1 spray intranasal BID PRN nasal 08/10/19 06/13/25 History aerosol (Saline Mist) congestion ascorbic acid (vitamin C) 500 mg 500 mg PO DAILY 08/06/23 06/13/25 History capsule albuterol sulfate 90 mcg/actuation 1 inh inhalation Q4H PRN shortness 08/22/24 06/13/25 Rx aerosol inhaler of breath or wheezing #6.7 grams montelukast 10 mg tablet 10 mg PO DAILY #90 tabs 11/21/24 06/13/25 Rx (Singulair) fluticasone fur. 100 mcg-umeclid See Rx Instructions .Route 11/22/24 06/13/25 Rx 62.5 mcg-vilant 25 mcg .COMPLEX #60 ea inhalat.powder (Trelegy Ellipta) atorvastatin 40 mg tablet 40 mg PO DAILY 03/07/25 06/13/25 History losartan 100 mg tablet 100 mg PO DAILY #90 tabs 04/13/25 06/13/25 Rx meloxicam 7.5 mg tablet 7.5 mg PO DAILY #30 tabs 06/07/25 06/13/25 Rx aspirin 81 mg tablet,delayed 81 mg PO BID 14 days #28 tabs 07/06/25 Rx release oxycodone-acetaminophen 5 mg-325 1 - 2 tablet PO Q4-6H PRN pain #30 07/06/25 Rx mg tablet tabs Patient hx anesthesia problems: none Family hx anesthesia problems: none Results Review: All pre-operative results and documents have been reviewed as part of the pre-operative evaluation. [facility] Past Medical History Medical History (Updated 07/06/25 @ 07:13 by Hardik Christensen DO) Obstructive sleep apnea (adult) (pediatric) COPD with asthma Persistent cough Lung nodule Arthritis pain, shoulder Body mass index (BMI) of 40.1-44.9 in adult BMI greater than 40 Morbid obesity Acute right-sided low back pain without sciatica BMI 39.0-39.9,adult Body mass index (BMI) 40.0-44.9, adult (09/07/17) Bronchitis, not specified as acute or chronic Dietary counseling and surveillance (08/30/18) Encounter for cosmetic surgery Essential (primary) hypertension Ganglion Hyperkeratosis Influenza B Mixed hyperlipidemia Never smoked tobacco She is a never smoker but grew up around second hand smoke. Persistent cough for 3 weeks or longer Sebaceous cyst of left axilla Seborrheic dermatitis, unspecified Strain of left trapezius muscle Subcutaneous nodule of toe of left foot Type 2 diabetes mellitus without complications Surgical History Surgical History H/O: hysterectomy Family History Family History Father Hypertension Family history of lung cancer, Onset Age: 60 Mother Hypertension Carcinoma of colon Diabetes mellitus Grandparent Carcinoma of colon Sibling Carcinoma of colon Patient's sister is in good health Social History Social History Smoking status: Never smoker Second hand tobacco smoke exposure: Yes Alcohol intake: current Drinks per week: 2 Substance use: never Substance use type: does not use Do You Feel Safe in your Home?: Yes Lack of Transportation: No Lack of Food: Never True Current Housing: I Have Housing Concerned About Future Housing: No Difficulty Paying Gas/Electric Bills: No Difficulty Paying for Meds: No Currently Unemployed: No Education: High School Diploma/GED Difficulty w/ Childcare or Family Care: No Living arrangements: with family Occupation/Education: retired 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 Gender identity (if verbalized by the patient): Female Sexual Orientation (if Verbalized by the Patient): Straight or Heterosexual Spiritual care concerns: No Agree to blood products: Yes Anes - Eval Final PreProcedure Day of Procedure 07/06/25 07:05 Patient weight: obese Heart: regular rate and rhythm Lungs: clear to auscultation Airway: Mallampati scale class II Neurological: alert and oriented Last oral intake: >/= 8 hours ASA classification: III Emergent: no Anesthetic plan: proceed Anesthesia type and monitoring: general ETT and standard monitoring Results Review: All pre-operative results and documents have been reviewed as part of the pre-operative evaluation. Informed Consent: The patient's anesthetic plan and its attendant risks and benefits were discussed with the patient/family/POA. Questions were solicited and answers provided to the satisfaction of the patient/family/POA.
[2025-07-06] MEDS: ACETAMINOPHEN 500 MG TABLET 1000 MG PO (07:17)
--- NOTE | 2025-07-06 07:22 | WPDHPUPDATE1 ---
History and Physical Update Update Date/Time: 07/06/25 07:22 History and Physical has been reviewed, including an updated exam of the patient. There are NO changes in the patient's condition. Risks, benefits, and alternatives have been discussed and questions answered. Patient agrees to proceed with procedure.
[2025-07-06] MEDS: CLINDAMYCIN 900 MG/D5W 50 ML 900 MG/50 ML PIGGYBACK 50 MG IVPB (07:32)
[2025-07-06] MEDS: SODIUM CHLORIDE 0.9% IV 37.7 ML, MORPHINE SULFATE INJ (*CRX) 2 MG, ROPivacaine HCL 1% 2... INFILTRATE (08:26)
[2025-07-06] MEDS: VANCOMYCIN HCL 1,000 MG VIAL 1000 MG TOPICAL (08:28)
[2025-07-06] MEDS: TRANEXAMIC ACID 1,000 MG/10 ML AMPUL 1000 MG IV PUSH (09:22)
[2025-07-06] MEDS: fentaNYL CITRATE INJ (*CRX) 100 MCG/2 ML VIAL 25 MCG IV PUSH ×4 (09:47→10:25)
--- NOTE | 2025-07-06 11:01 | ADMGEN ---
This patient, Anita Dorado, was admitted to [facility] Surg Room 310-01. Patient/family oriented to hospital policies and general routines including ID bracelet, bed and alarms, visiting hours, pain management, procedures, bathroom and other care routines, personal items, smoking policy, room service/diet, and visiting hours. Information on how to activate the Rapid Response Team has been discussed. Patient/Family are encouraged to report perceived risks to care and to ask questions if they do not understand what they are told or what they should do.
[2025-07-06] MEDS: LOSARTAN POTASSIUM 100 MG TABLET PO (11:43)
[2025-07-06] MEDS: ACETAMINOPHEN 325 MG TABLET 650 MG PO ×2 (11:43→17:13)
[2025-07-06] MEDS: MELOXICAM 7.5 MG TABLET PO (11:44)
[2025-07-06] MEDS: MONTELUKAST SODIUM 10 MG TABLET PO (11:44)
[2025-07-06] MEDS: SENNA/DOCUSATE SODIUM TABLET 2 TAB PO ×2 (11:44→17:13)
[2025-07-06] MEDS: FAMOTIDINE 20 MG TABLET PO ×2 (11:44→21:03)
[2025-07-06] MEDS: ASPIRIN 81 MG ENTERIC TABLET PO ×2 (11:44→21:03)
--- NOTE | 2025-07-06 13:17 | P.OP_ITS ---
Procedure Note - Detailed Date of Procedure 07/06/25 Pre-op Diagnosis primary OA right shoulder Post-op Diagnosis Same Procedure Performed Reverse total shoulder arthroplasty, right Surgeon Mj Siddiqi MD Sanding Machine Tender Automatic Gaby Serra PA-C Anesthesia General Findings 19 degrees retroversion. 6 degrees superior inclination. Excellent bone quality. Description of Procedure Preoperative antibiotics were given. The patient was transferred to the operating room and a general anesthetic was administered. The beach chair position was used at 45 degrees. All bony prominences were padded. The head was carefully stabilized on the On license of [facility] head teller. A sterile prep and drape was performed in the usual manner with ChloraPrep. A longitudinal incision was created at the anterior shoulder just lateral to the deltopectoral interval. Ca reful dissection was performed to expose the interval and protect the cephalic vein. The vein was retracted medially. The upper border of the pectoralis was released. Anterior circumflex vessel branches were suture ligated. The biceps was tenodesed. A subscapularis tenotomy was performed. The inferior capsule was released, exposing the humeral head. Osteophytes were removed. Care was taken to stay on bone to protect the axillary nerve. The neck anteversion and inclination were carefully assessed. Version was between 20? and 30?. The anatomic head cut was taken with the oscillating saw. The cut protector was placed, and attention was turned to the glenoid. Retractors were placed. Releases were carried out for exposure. The subscapularis was mobilized, the inferior capsule and long head of triceps released, and the superior and middle glenohumeral ligaments released as well. Labral tissue was resected as needed. Version and inclination were corrected according to preoperative templating. The sizing template was used to assess the baseplate position low on the glenoid, with an approximate 15 degrees corrections of retroversion and 5 degrees of inclination. A guide pin was placed. Minimal reaming was used to accomplish a flat surface without violating the subchondral bone. The boss was drilled, and the real component was impacted into position. The central compression screw was placed. Supplemental locking screws were placed superiorly, and inferiorly. The glenosphere was impacted into the taper. Attention was turned to the humerus. The guide pin was placed, central drilling performed, and the broach trial inserted. The proximal humerus was reamed for the inset component. The humeral components were trialed. The real humeral stem, tray, and insert were impacted i nto position. The shoulder was copiously irrigated periodically with pulsatile lavage. The shoulder was reduced and stability confirmed. 1 gram of Vancomycin powder was placed in the joint. The biceps tenodesis was incorporated with the pectoralis tendon repair. The remaining tissue was closed with 2-0 Vicryl, 3-0 Stratafix and 4-0 Stratafix, and steri-strips. A sterile silver occlusive dressing and shoulder immobilizer were placed. The patient was transferred to the recovery room. Physician housekeeper/laundry assistant, Gaby Serra PA-C, required for surgery; including patient positioning, draping, tissue retraction, maintaining instrument position, wound closure, and dressing placement. Implants Shoulder [employer] reverse TSA size 0 stem. +0 polyethylene insert. 10 augmented baseplate. 33 + 3 mm glenosphere. Estimated Blood Loss 150 Drains No Pathology None sent Complications No immediate complications Condition Stable Disposition PACU [facility] Billing Surgery - Charge Forward: Surgery Billing
[2025-07-06] MEDS: WATER FOR IRRIGATION, STERILE 500 ML BOTTLE (17:12)
[2025-07-06] MEDS: oxyCODONE/ACETAMINOPHEN (*CRX) 5-325 MG TABLET 1 TABLET PO (21:06)
[2025-07-07 00:31] VITALS: BP 147/72; PULSE 64; RESP 16; TEMP 36.5; O2SAT 96
[2025-07-07] MEDS: oxyCODONE/ACETAMINOPHEN (*CRX) 5-325 MG TABLET 1 TABLET PO ×2 (03:00→08:46)
[2025-07-07 06:21] LABS: Hematocrit 36.7 % (37.0-47.0); Hemoglobin 11.5 g/dL (12.0-15.0); Immature Granulocyte Percent A 0.5 % (0-0.5); Lymphocytes Absolute Auto 1.64 K/mm3 (0.9-3.2); Mean Corpuscular HGB Conc 31.3 g/dl (32-36); Mean Corpuscular Hemoglobin 28.6 pg (26-34); Mean Corpuscular Volume 91.3 fl (80-100); Nucleated Red Blood Cells Absolute Auto 0.000 K/mm3 (0.0-0.012); Nucleated Red Blood Cells Perc 0.0 % (0.0-0.2); Platelet Count Result 281 k/mm3 (150-375); Red Blood Count 4.02 M/mm3 (4.2-5.4); White Blood Count 14.5 K/mm3 (4.5-10.0)
[2025-07-07] MEDS: ACETAMINOPHEN 325 MG TABLET 650 MG PO (06:26)
[2025-07-07 06:49] LABS: Anion Gap 6 mmol/L (4-12); Blood Urea Nitrogen 11 mg/dL (7-17); Calcium 8.7 mg/dL (8.4-10.2); Carbon Dioxide 27 mmol/L (22-30); Chloride 103 mmol/L (98-107); Estimated CRCL calculation 69 ml/min; Estimated Glomerular Filt Rate > 60; Glucose 127 mg/dL (65-110); Potassium 4.0 mmol/L (3.4-5.0); Sodium 136 mmol/L (137-145)
[2025-07-07] MEDS: FLUTICASONE/UMECLIDIN/VILANTER 100-62.5-25 MCG ELLIPTA 1 PUFF INHALATION (07:08)
[2025-07-07 07:11] VITALS: BP 124/62; PULSE 62; RESP 14; TEMP 36.5; O2SAT 94
[2025-07-07 08:14] VITALS: BP 129/66; PULSE 64; RESP 14; TEMP 36.4; O2SAT 92
[2025-07-07] MEDS: ATORVASTATIN 40 MG TABLET PO (08:41)
[2025-07-07] MEDS: ASPIRIN 81 MG ENTERIC TABLET PO (08:41)
[2025-07-07] MEDS: MELOXICAM 7.5 MG TABLET PO (08:42)
[2025-07-07] MEDS: FAMOTIDINE 20 MG TABLET PO (08:42)
[2025-07-07] MEDS: SENNA/DOCUSATE SODIUM TABLET 2 TAB PO (08:42)
[2025-07-07] MEDS: LOSARTAN POTASSIUM 100 MG TABLET PO (08:42)
[2025-07-07] MEDS: MONTELUKAST SODIUM 10 MG TABLET PO (08:42)
[2025-07-07 09:06] VITALS: O2SAT 92
[2025-07-07] MEDS: CLINDAMYCIN 600 MG/D5W 50 ML 600 MG/50 ML PIGGYBACK 100 MG IVPB (10:35)
== END 2025-07-07 11:15 | disposition home or self-care (01) ==
LOC: ANHSURGERY 07:09 → ANH3MEDSUR 10:54
PROVIDERS: Physician Assistant Surgical; PCP Family Medicine; Visit Provider Orthopaedic Surgery
PROC: (CPT 23472; principal; 2025-07-06 07:30)
DX: M19.011 Primary osteoarthritis, right shoulder (principal); Z79.899 Other long term (current) drug therapy
CPT/HCPCS: 23472; 36415; 73030; 80048; 85025; 86850; 86900; 86901; 97110; 97116; 97161; 97166; 97530; 97535; A4565; A9270; C1776; J0166; J1100; J1596; J1885; J2270; J2405; J2704; J2795; J3010; J3290; J3373; J7120